=== PATIENT | male | born 1980 | race Caucasian/White ===

== ENCOUNTER 2021-03-13 03:59 | Emergency (ER) | payer SELFPAY ==
[~2021-03-13] VITALS: Ht 162.6 cm; Wt 66.0 kg
[2021-03-13] MEDS ORDERED: TETANUS, DIPHTHERIA, PERTUSSIS VAC/PF 0.5ML (>10YR OLD) IM ONE (05:15)
[2021-03-13] MEDS ORDERED: CEFAZOLIN 1000MG PREMIX 50 ML IV ONE (05:15)
[2021-03-13] MEDS: MORPHINE SULFATE 2 MG/ML CPJ (NOT FOR IM USE) IV ONE ×2 (06:09→06:11)
[2021-03-13] MEDS ORDERED: BACITRACIN ZINC OINT UDPKT TOP ONE (06:45)
[2021-03-13] MEDS ORDERED: LIDOCAINE HCL/PF 1% 10 MG/ML 5ML VIAL INFIL ONE (06:45)
[2021-03-13] MEDS ORDERED: IBUP-2029 MT (09:43)
[2021-03-13 11:18] VITALS: BP 121/75
== END 2021-03-13 11:19 | disposition home or self-care (01) ==
LOC: ER 03:59
DX: S66.323A Laceration of extensor muscle, fascia and tendon of left middle finger at wrist and hand level, initial encounter (principal); S61.412A Laceration without foreign body of left hand, initial encounter; R00.0 Tachycardia, unspecified; X99.1XXA Assault by knife, initial encounter; Y93.89 Activity, other specified; Y92.811 Bus as the place of occurrence of the external cause
CPT/HCPCS: 12002; 73130; 87426; 90471; 90715; 93005; 96365; 99284; J0690; J3490; Z7610; J2270